=== PATIENT | female | born 1945 | race Caucasian/White ===

== ENCOUNTER 2019-04-15 15:43 | Emergency (ER) | payer BC, OTHER ==
[~2019-04-15] VITALS: Ht 180.3 cm; Wt 53.4 kg
[~2019-04-15 15:43] MED LIST: ACET325T33 PO; IBUP-1542 PO; LEVO750T8 PO; MECL25TA2 PO; TRAM50TA2 PO
[2019-04-15 15:56] VITALS: Ht 180.3 cm; Wt 53.4 kg
[2019-04-15 17:12] VITALS: BP 185/78; PULSE 68; RESP 20
== END 2019-04-15 17:41 | disposition home or self-care (01) ==
LOC: E/R 15:43
DX: I12.9 Hypertensive chronic kidney disease with stage 1 through stage 4 chronic kidney disease, or unspecified chronic kidney disease (principal); N18.9 Chronic kidney disease, unspecified; E11.22 Type 2 diabetes mellitus with diabetic chronic kidney disease
CPT/HCPCS: 36415; 80053; 85025; 93005; Z7502